=== PATIENT | male | born 1980 | race Caucasian/White ===

== ENCOUNTER → 2019-12-05 12:40 | Outpatient (CLI) | payer BC, SELFPAY ==
--- NOTE | ~2019-12-05 | XR_ITS ---
EXAMINATION: XR thoracic spine 3V, XR lumbar spine 2-3V DATE: 12/05/2019 13:17 INDICATION: Muscle strain with back pain TECHNIQUE: 1. One AP, lateral and lateral swimmer's views of the thoracic spine were obtained. 2. AP, lateral and coned-down lateral lumbosacral views of the lumbar spine were obtained. COMPARISON: None. FINDINGS: Thoracic spine: Mild thoracic kyphosis. Vertebral body heights are normal. Minimal to mild disc height loss at multip le levels in the thoracic spine. Visualized portions of the lungs are clear with no pleural effusion or pneumothorax. Cardiomediastinal silhouette is normal. Lumbar spine: Alignment is normal. Vertebral body heights are normal. Mild disc height loss at L2-L3 and L3-L4. Sac rum and bilateral sacroiliac joints are normal. IMPRESSION: 1. Mild thoracic and lumbar spondylosis. Reviewed, dictated and finalized at location A. CONNECT LPN IMPRESSION: 1. Mild thoracic and lumbar spondylosis.
--- NOTE | ~2019-12-05 | XR_ITS ---
EXAMINATION: XR chest 2V EXAM DATE: 12/05/2019 13:17 INDICATION: Right lower posterior rib pain. TECHNIQUE: Frontal and lateral projections of the chest obtained and reviewed. There is no prior bassam dy for comparison. FINDINGS: The lungs are clear. There are no pleural effusions. The cardiomediastinal silhouette is within normal limits. There is no pneumothorax suspected. The bones and soft tissues are unremarkab le. IMPRESSION: Normal chest x-ray exam. Reviewed, dictated and finalized at location B. AR CARRIER IMPRESSION: Normal chest x-ray exam.
== END ==
PROVIDERS: PCP Family Medicine Adolescent Medicine; Visit Provider Physician Assistant
DX: M47.815 Spondylosis without myelopathy or radiculopathy, thoracolumbar region (principal); R07.81 Pleurodynia
CPT/HCPCS: 71046; 72072; 72100